=== PATIENT | male | born 1995 | race Two or more races ===

== ENCOUNTER 2022-10-18 08:13 | Emergency (ER) | payer OTHER ==
[~2022-10-18] VITALS: Ht 172.7 cm; Wt 78.1 kg
[2022-10-18 08:51] VITALS: BP 134/90
[2022-10-18] MEDS ORDERED: IBUP800T27 PO (09:20)
[2022-10-18] MEDS ORDERED: CEPH-510 PO (09:20)
== END 2022-10-18 09:28 | disposition home or self-care (01) ==
LOC: ER 08:13
DX: L02.32 Furuncle of buttock (principal); Z79.1 Long term (current) use of non-steroidal anti-inflammatories (NSAID); Z79.899 Other long term (current) drug therapy